=== PATIENT | male | born 1945 | race American Indian/Alaskan Native ===

== ENCOUNTER 2018-12-09 03:16 | Emergency (ER) | payer SELFPAY ==
[2018-12-09 03:22] VITALS: BMI 20.5
[2018-12-09 03:27] VITALS: BP 145/83; PULSE 95; TEMP 98.3; O2SAT 99
[2018-12-09 03:43] VITALS: RESP 18
--- NOTE | 2018-12-09 04:13 | ED PDOC ---
Lower Extremity Pain/Injury Time Seen by Provider: 12/09/18 03:39 Chief Complaint (Nursing): Lower Extremity Problem/Injury Chief Complaint (Provider): Lower Extremity Problem History Per: Patient History/Exam Limitations: no limitations Onset/Duration Of Symptoms: Days (3x weeks) Current Symptoms Are (Timing): Still Present Severity: Moderate Additional Complaint(s): 72 year old male with no past medical history presents to the ED with complaints of pain in his toes from walking ongoing for 3x weeks. Patient states that he was seen by his PMD for the removal of corns from his feet, but was unable to follow up. Patient denies having weakness or numbness of the toes, or any other symptoms. PMD: None provided Past Medical History Reviewed: Historical Data, Nursing Documentation, Vital Signs Vital Signs: Last Vital Signs Temp 98.3 F 12/09/18 03:34 Pulse 95 H 12/09/18 03:34 Resp 18 12/09/18 03:34 BP 145/83 12/09/18 03:27 Pulse Ox 99 12/09/18 03:34 DANNA Report Viewed: Yes - Medical History PMH: No Chronic Diseases - Family History Family History: States: No Known Family Hx - Social History Current smoker - smoking cessation education provided: Yes Alcohol: None Drugs: Denies - Allergies Allergies/Adverse Reactions: Allergies Allergy/AdvReac Type Severity Reaction Status Date / Time No Known Allergies Allergy Verified 12/09/18 03:33 Review of Systems ROS Statement: Except As Marked, All Systems Reviewed And Found Negative Musculoskeletal: Positive for: Other (toe pain) Neurological: Negative for: Weakness, Numbness Physical Exam - Reviewed Nursing Documentation Reviewed: Yes Vital Signs Reviewed: Yes - Physical Exam Appears: Positive for: Non-toxic, No Acute Distress. Negative for: Well (dissheveled) Head Exam: Positive for: ATRAUMATIC, NORMOCEPHALIC Skin: Positive for: Normal Color, Warm, Dry Extremity: Positive for: Other (bilateral feet: poor foot care with corns, (-) ulcers, (-) swelling, distal pulses in tact, neurovascularly in tact) Neurologic/Psych: Positive for: Alert, Oriented (3x) - ECG O2 Sat by Pulse Oximetry: 99 (RA) Pulse Ox Interpretation: Normal Medical Decision Making Medical Decision Makin:39 Initial impression: 72 year old male presents with foot pain and poor foot care. No acute ED intervention necessary at this time. Will give podiatry follow up. Scribe Attestation: Documented byBetsey Looney, acting as a scribe for Marco Antonio Goetz MD. Provider Scribe Attestation: All medical record entries made by the Scribe were at my direction and personally dictated by me. I have reviewed the chart and agree that the record accurately reflects my personal performance of the history, physical exam, medical decision making, and the department course for this patient. I have also personally directed, reviewed, and agree with the discharge instructions and disposition. Disposition - Clinical Impression Clinical Impression: Foot pain - Disposition Referrals: Podiatry Clinic [Outside] Disposition: Routine/Home Disposition Time: 03:34 Condition: STABLE Instructions: Plantar Fasciitis Exercises Forms: [employer] (Faroese)
== END 2018-12-09 05:22 | disposition home or self-care (01) ==
LOC: H.ER 03:16
DX: M79.673 Pain in unspecified foot (principal); F17.200 Nicotine dependence, unspecified, uncomplicated